=== PATIENT | female | born 1990 | race Caucasian/White ===

== ENCOUNTER → 2016-09-24 | Outpatient (REF) | payer OTHER ==
[~2016-09-24] MED LIST: ACET50TA PO; IBUP80TA PO; PRENTAB44 PO; STUACAP PO
== END ==
LOC: M LAB REF 16:58
PROVIDERS: ATTEND Obstetrics & Gynecology
DX: R85.610 Atypical squamous cells of undetermined significance on cytologic smear of anus (ASC-US) (principal)

== ENCOUNTER → 2017-09-30 | Outpatient (REF) | payer OTHER | LOC: M LAB REF 17:16 | DX: Z01.411 Encounter for gynecological examination (general) (routine) with abnormal findings (principal); R85.612 Low grade squamous intraepithelial lesion on cytologic smear of anus (LGSIL) ==

== ENCOUNTER → 2017-12-16 | Outpatient (REF) | payer OTHER | LOC: M LAB REF 17:21 | DX: R87.612 Low grade squamous intraepithelial lesion on cytologic smear of cervix (LGSIL) (principal) ==

== ENCOUNTER 2018-01-09 17:00 | Emergency (ER) | payer OTHER | END 2018-01-09 17:59 | disposition home or self-care (01) | LOC: M ED 17:00 | DX: S90.31XA Contusion of right foot, initial encounter (principal); W22.8XXA Striking against or struck by other objects, initial encounter; Y92.099 Unspecified place in other non-institutional residence as the place of occurrence of the external cause; Y93.9 Activity, unspecified; Y99.9 Unspecified external cause status | CPT/HCPCS: 73630 ==

== ENCOUNTER → 2020-11-26 | Outpatient (REF) | payer OTHER ==
[~2020-11-26] MED LIST changes: -ACET50TA PO; +MAPA500T2 PO
== END ==
LOC: M SFHCWAGY 17:19
PROVIDERS: ATTEND Obstetrics & Gynecology
DX: R87.610 Atypical squamous cells of undetermined significance on cytologic smear of cervix (ASC-US) (principal)

== ENCOUNTER 2021-02-26 15:36 | Emergency (ER) | payer OTHER ==
[~2021-02-26] VITALS: Ht 162.6 cm; Wt 61.4 kg
--- NOTE | 2021-02-26 16:49 | REP ---
INDICATION: trauma. TECHNIQUE: Four views FINDINGS: Multiple views of the right ribs show no fracture or osseous lesion. The accompanying frontal view of the chest shows no cardiomegaly, infiltrates, effusions, or pneumothoraces. IMPRESSION: Negative right rib series. <Electronically signed by Ruel Singeltary > 02/26/21 [id number]
--- NOTE | 2021-02-26 16:50 | REP ---
INDICATION: trauma. COMPARISON: None. TECHNIQUE: Five views FINDINGS: Five views of the lumbosacral spine show no acute fracture, dislocation or subluxation. The intervertebral disc spaces are symmetric and well maintained. There is no spondylolysis or spondylolisthesis. The pedicles are intact bilaterally and there is no destructive osseous lesion. There is partial sacralization of L5 on the left. IMPRESSION: Unremarkable lumbosacral spine series. <Electronically signed by Ruel Singletary > 02/26/21 [id number]
--- NOTE | 2021-02-26 16:51 | REP ---
INDICATION: trauma. COMPARISON: None TECHNIQUE: AP and frog-lateral views of the hip with AP pelvis FINDINGS: The hip joint spaces are symmetric and well maintained bilaterally. There is no acute fracture, dislocation, or subluxation. Mature tunnel defects are seen in the right femoral neck from previous orthopedic surgical intervention. IMPRESSION: No acute abnormality. Findings as described above. <Electronically signed by Ruel Singletary > 02/26/21 [id number]
[2021-02-26] MEDS ORDERED: NAPR-837 PO (17:02)
[2021-02-26 17:28] VITALS: BP 135/83
== END 2021-02-26 17:33 | disposition home or self-care (01) ==
LOC: M ED 15:36
DX: S20.211A Contusion of right front wall of thorax, initial encounter (principal); S70.01XA Contusion of right hip, initial encounter; S30.0XXA Contusion of lower back and pelvis, initial encounter; W11.XXXA Fall on and from ladder, initial encounter; Y92.89 Other specified places as the place of occurrence of the external cause; Y93.9 Activity, unspecified; Y99.1 Military activity; Z87.81 Personal history of (healed) traumatic fracture